=== PATIENT | male | born 1985 | race Caucasian/White ===

== ENCOUNTER 2018-04-11 01:16 | Emergency (ER) | payer OTHER ==
[2018-04-11] MEDS ORDERED: TERBUTALINE SULF 1 MG/1ML ONE (01:39)
--- NOTE | 2018-04-11 02:04 | EDPHYS ---
Physician Documentation [facility] Name: Guy Broderick Age: 32 yrs Sex: Male : 1985 Arrival Date: 04/11/2018 Time: 01:19 Bed 24 Private MD: Joel Villanueva ED Physician Ra Mosquera HPI: 04/11 01:51 This 32 yrs old Male presents to ER via Ambulatory with complaints of Penile jr8 Problem. 01:51 The patient presents with prolonged erection. Onset: The symptoms/episode jr8 began/occurred acutely, today. Modifying factors: The symptoms are alleviated by nothing, the symptoms are aggravated by nothing. Associated signs and symptoms: The patient has no apparent associated signs or symptoms. Severity of symptoms: At their worst the symptoms were mild, in the emergency department the symptoms are unchanged. The patient has not experienced similar symptoms in the past. The patient has not recently seen a physician. Patient had taken his prescribed Erectile dysfunction medication tonight. Has not been able to get rid of his prolonged erection. Has been approximately 4.5 hours now. Stated that it will somewhat decrease and then come back again . Historical: - Allergies: 01:36 No Known Allergies; - Home Meds: 01:36 None [Active]; - PMHx: 01:36 None; - PSHx: 01:36 None; - Immunization history:: Adult Immunizations unknown. - Social history:: Smoking status: Patient/guardian denies using tobacco. - Ebola Screening: : Patient negative for fever greater than or equal to 101.5 degrees Fahrenheit, and additional compatible Ebola Virus Disease symptoms Patient denies exposure to infectious person. ROS: 01:51 Eyes: Negative for injury, pain, redness, and discharge, ENT: Negative for injury, jr8 pain, and discharge, Neck: Negative for injury, pain, and swelling, Cardiovascular: Negative for chest pain, palpitations, and edema, Respiratory: Negative for shortness of breath, cough, wheezing, and pleuritic chest pain, Abdomen/GI: Negative for abdominal pain, nausea, vomiting, diarrhea, and constipation, Back: Negative for injury and pain, MS/Extremity: Negative for injury and deformity, Skin: Negative for injury, rash, and discoloration, Neuro: Negative for headache, weakness, numbness, tingling, and seizure. 01:51 : Positive for penile pain. Exam: 01:51 Cardiovascular: Regular rate and rhythm with a normal S1 and S2. No gallops, murmurs, jr8 or rubs. Normal PMI, no JVD. No pulse deficits. Respiratory: Lungs have equal breath sounds bilaterally, clear to auscultation and percussion. No rales, rhonchi or wheezes noted. No increased work of breathing, no retractions or nasal flaring. Abdomen/GI: Soft, non-tender, with normal bowel sounds. No distension or tympany. No guarding or rebound. No evidence of tenderness throughout. Back: No spinal tenderness. No costovertebral tenderness. Full range of motion. Skin: Warm, dry with normal turgor. Normal color with no rashes, no lesions, and no evidence of cellulitis. MS/ Extremity: Pulses equal, no cyanosis. Neurovascular intact. Full, normal range of motion. Neuro: Awake and alert, GCS 15, oriented to person, place, time, and situation. Cranial nerves II-XII grossly intact. Motor strength 5/5 in all extremities. Sensory grossly intact. Cerebellar exam normal. Normal gait. 01:51 : Male external genitalia: Circumcision noted. Erection present. No other anatomic abnormalities noted . Vital Signs: 01:37 BP 137 / 76; Pulse 91; Resp 18; Temp 98.2; Pulse Ox 98% on R/A; wh 02:09 BP 147 / 83; Pulse 97; wh MDM: 01:24 Patient medically screened. [facility] 02:01 Data reviewed: vital signs, nurses notes, and as a result, I will discharge patient. [facility] Data interpreted: Pulse oximetry: on room air is 98 %. Interpretation: normal. Counseling: I had a detailed discussion with the patient and/or guardian regarding: the historical points, exam findings, and any diagnostic results supporting the discharge/admit diagnosis, the need for outpatient follow up, a family practitioner, to return to the emergency department if symptoms worsen or persist or if there are any questions or concerns that arise at home. Response to treatment: the patient's symptoms have resolved after treatment, the patient's pain is gone, No penile erection . Administered Medications: :42 Drug: Terbutaline 0.5 mg Route: Sub-Q; Site: left upper arm; 02:02 Follow up: Response: No adverse reaction Disposition: 02:46 Co-signature as Attending Physician, Ra Moqsuera MD. pkl Disposition: 04/11/18 02:03 Discharged to Home. Impression: Priapism, drug-induced. - Condition is Stable. - Discharge Instructions: Priapism. - Medication Reconciliation Form, Thank You Letter, Antibiotic Education, Prescription Opioid Use form. - Follow up: Joel Villanueva DO; When: 1 - 2 days; Reason: Recheck today's complaints, Continuance of care, Re-evaluation by your physician. - Problem is new. - Symptoms are resolved. Signatures: Ra Mosquera MD MD pkl Hayder Butler PA PA jr8 Ambrocio Peters Corrections: (The following items were deleted from the chart) 02:11 02:03 04/11/2018 02:03 Discharged to Home. Impression: Priapism, drug-induced. Condition is Stable. Forms are Medication Reconciliation Form, Thank You Letter, Antibiotic Education, Prescription Opioid Use. Follow up: Joel Villanueva; When: 1 - 2 days; Reason: Recheck today's complaints, Continuance of care, Re-evaluation by your physician. Problem is new. Symptoms are resolved. jr8
--- NOTE | 2018-04-11 02:04 | ER ---
Nurse's Notes [facility] Name: Guy Broderick Age: 32 yrs Sex: Male : 1985 Arrival Date: 04/11/2018 Time: 01:19 Bed 24 Private MD: Joel Villanueva Diagnosis: Priapism, drug-induced Presentation: 04/11 01:30 Presenting complaint: Patient states: Pt states he took Trimex at around 20:30 and wh still has penile erection until now. Pt denies pain or any associated symptom. Transition of care: patient was not received from another setting of care. Onset of symptoms was April 10, 2018. Risk Assessment: Do you want to hurt yourself or someone else? Patient reports no desire to harm self or others. Initial Sepsis Screen: Does the patient meet any 2 criteria? No. Patient's initial sepsis screen is negative. Does the patient have a suspected source of infection? No. Patient's initial sepsis screen is negative. Care prior to arrival: None. 01:30 Method Of Arrival: Ambulatory 01:30 Acuity: DARWIN 5 Triage Assessment: 01:35 General: Appears in no apparent distress. Pain: Denies pain. Historical: - Allergies: 01:36 No Known Allergies; - Home Meds: 01:36 None [Active]; - PMHx: 01:36 None; - PSHx: 01:36 None; - Immunization history:: Adult Immunizations unknown. - Social history:: Smoking status: Patient/guardian denies using tobacco. - Ebola Screening: : Patient negative for fever greater than or equal to 101.5 degrees Fahrenheit, and additional compatible Ebola Virus Disease symptoms Patient denies exposure to infectious person. Screenin:35 Abuse screen: Denies threats or abuse. Denies injuries from another. Nutritional screening: No deficits noted. Tuberculosis screening: No symptoms or risk factors identified. Fall Risk None identified. Assessment: 01:44 General: Appears in no apparent distress. uncomfortable, Behavior is calm, cooperative, wh appropriate for age. Pain: Denies pain. Neuro: Level of Consciousness is awake, alert, obeys commands. Cardiovascular: Denies chest pain, Capillary refill < 3 seconds. Respiratory: Airway is patent Respiratory effort is even, unlabored, Respiratory pattern is regular, symmetrical. GI: Abdomen is flat, non-distended. : Reports prolonged erection after taking Trimex medication. EENT: No signs and/or symptoms were reported regarding the EENT system. Derm: Skin is intact, is healthy with good turgor, Skin is pink, warm \T\ dry. normal. Musculoskeletal: Range of motion: intact in all extremities. 02:09 Reassessment: Patient appears in no apparent distress at this time. Patient is alert, wh oriented x 3, equal unlabored respirations, skin warm/dry/pink. Pt states erection has gone down. Vital Signs: 01:37 BP 137 / 76; Pulse 91; Resp 18; Temp 98.2; Pulse Ox 98% on R/A; wh 02:09 BP 147 / 83; Pulse 97; wh ED Course: 01:19 Patient arrived in ED. es 01:20 Joel Villanueva DO is Private Physician. es 01:23 Ambrocio Peters is Primary Nurse. wh 01:24 [facility] jr8 01:24 Ra Mosquera MD is Attending Physician. jr8 01:35 Triage completed. wh 01:36 Arm band placed on. wh 01:37 Patient has correct armband on for positive identification. Bed in low position. Call light in reach. Side rails up X 1. Pulse ox on. NIBP on. 02:02 Joel Villanueva DO is Referral Physician. jr8 02:10 No provider procedures requiring assistance completed. Patient did not have IV access during this emergency room visit. Administered Medications: 01:42 Drug: Terbutaline 0.5 mg Route: Sub-Q; Site: left upper arm; 02:02 Follow up: Response: No adverse reaction Outcome: 02:03 Discharge ordered by . jr8 02:10 Discharged to home ambulatory. 02:10 Condition: improved 02:10 Discharge instructions given to patient, Instructed on discharge instructions, follow up and referral plans. POC Demonstrated understanding of instructions, follow-up care, POC 02:11 Patient left the ED. Signatures: Aury Parrish Josh, PA PA jr8 Ambrocio Peters
== END 2018-04-11 02:11 | disposition home or self-care (01) ==
LOC: ER 01:16
DX: N48.33 Priapism, drug-induced (principal)
CPT/HCPCS: 96372; 99283; J3105

== ENCOUNTER 2020-03-31 08:50 | Day surgery (SDC) | payer BC ==
[2020-03-31 09:28] LABS: Hematocrit 50.8 % (39.6-49.0)
[2020-03-31 09:29] LABS: Absolute Lymphocytes (CBC) 1.6 K/uL (0.7-4.9); Lymphocytes % 23.4 % (15.3-44.8)
[2020-03-31 12:22] VITALS: BMI 32.7
[2020-03-31 12:51] VITALS: BP 140/82; TEMP 98; O2SAT 99
== END 2020-03-31 10:45 | disposition home or self-care (01) ==
LOC: DS 08:50
PROVIDERS: ATTEND Internal Medicine Gastroenterology
DX: D75.1 Secondary polycythemia (principal)
CPT/HCPCS: 36415; 85025; 99195

== ENCOUNTER 2020-08-25 09:29 | Day surgery (SDC) | payer BC ==
[2020-08-25 09:47] LABS: Hematocrit 50.2 % (39.6-49.0)
[2020-08-25 09:58] VITALS: BP 140/84; TEMP 98; O2SAT 99; BMI 32.7
== END 2020-08-25 10:20 | disposition home or self-care (01) ==
LOC: DS 09:29
PROVIDERS: ATTEND Internal Medicine Gastroenterology
DX: D75.1 Secondary polycythemia (principal)
CPT/HCPCS: 36415; 85014; 85018; 99195

== ENCOUNTER 2020-10-23 08:14 | Day surgery (SDC) | payer BC ==
[2020-10-23 09:02] LABS: Absolute Lymphocytes (CBC) 1.6 K/uL (0.7-4.9); Basophils % 0.9 % (0-1.3); Hematocrit 49.7 % (39.6-49.0); Lymphocytes % 23.2 % (15.3-44.8); MPV 7.8 fL (7.6-11.3); RBC Red Blood Cell Count 5.58 M/uL (4.33-5.43)
[2020-10-23 09:04] VITALS: BMI 32.7
[2020-10-23 09:05] VITALS: BP 157/93; TEMP 98.4; O2SAT 98
== END 2020-10-23 09:27 | disposition home health service (06) ==
LOC: DS 08:14
PROVIDERS: ATTEND Internal Medicine Gastroenterology
DX: D75.1 Secondary polycythemia (principal)
CPT/HCPCS: 36415; 85025; 99195

== ENCOUNTER 2021-01-30 07:17 | Day surgery (SDC) | payer BC ==
[2021-01-30 08:50] VITALS: BP 117/51; TEMP 98.4; O2SAT 99; BMI 32.7
== END 2021-01-30 08:41 | disposition home or self-care (01) ==
LOC: DS 07:17
PROVIDERS: ATTEND Internal Medicine Gastroenterology
DX: D75.1 Secondary polycythemia (principal)
CPT/HCPCS: 99195

== ENCOUNTER 2022-06-19 03:46 | Emergency (ER) | payer BC ==
[2022-06-19] MEDS ORDERED: TERBUTALINE SULF 1 MG/1ML ONE (04:06)
[2022-06-19] MEDS ORDERED: Phenylephrine HCl 10 MG/ML 1 ML VIAL ONE (04:41)
[2022-06-19] MEDS ORDERED: LIDOCAINE 1% MPF 5 ML VIAL ONE (04:46)
--- NOTE | 2022-06-19 05:52 | EDPHYS ---
Physician Documentation [facility] Name: Guy Broderick Age: 37 yrs Sex: Male : 1985 Arrival Date: 06/19/2022 Time: 03:49 Bed 3 Private MD: ED Physician Benson Kitchen HPI: 06/19 04:18 This 37 yrs old Male presents to ER via Ambulatory with complaints of Prolonged rt erection. 04:18 The patient presents with priapism. Onset: The symptoms/episode began/occurred 5 rt hour(s) ago. Modifying factors: The symptoms are alleviated by nothing, the symptoms are aggravated by nothing. Associated signs and symptoms: The patient has no apparent associated signs or symptoms. Severity of symptoms: At their worst the symptoms were mild. Presents to the ED with priapism after using an intracavernosal erectile dysfunction injection. He started develop pain. This is happened to him previously about 5 years ago, received terbutaline with significant symptomatic improvement. The patient denies other acute complaints at this time or other aggravating alleviating factors. Symptoms are mild in severity, pain is aching nature, nonradiating.. Historical: - Allergies: 03:56 No Known Allergies; vc1 - Home Meds: 03:56 None [Active]; vc1 - PMHx: 03:56 None; vc1 - PSHx: 03:56 None; vc1 - Immunization history:: Adult Immunizations Client reports receiving the Roge \T\ Roge single-dose vaccine. - Social history:: Smoking status: Patient denies any tobacco usage or history of. - Family history:: not pertinent. ROS: 04:18 Constitutional: Negative for fever, chills, and weight loss, Eyes: Negative for injury, rt pain, redness, and discharge, Cardiovascular: Negative for chest pain, palpitations, and edema, Respiratory: Negative for shortness of breath, cough, wheezing, and pleuritic chest pain, Abdomen/GI: Negative for abdominal pain, nausea, vomiting, diarrhea, and constipation, MS/Extremity: Negative for injury and deformity, Skin: Negative for injury, rash, and discoloration, Neuro: Negative for headache, weakness, numbness, tingling, and seizure, Psych: Negative for depression, anxiety, suicide ideation, homicidal ideation, and hallucinations. 04:18 : Positive for penile pain, priapism. Exam: 04:18 Constitutional: This is a well developed, well nourished patient who is awake, alert, rt and in no acute distress. Head/Face: Normocephalic, atraumatic. Neck: Trachea midline, no thyromegaly or masses palpated, and no cervical lymphadenopathy. Supple, full range of motion without nuchal rigidity, or vertebral point tenderness. No Meningismus. Chest/axilla: Normal chest wall appearance and motion. Nontender with no deformity. No lesions are appreciated. Cardiovascular: Regular rate and rhythm with a normal S1 and S2. No gallops, murmurs, or rubs. Normal PMI, no JVD. No pulse deficits. Respiratory: Lungs have equal breath sounds bilaterally, clear to auscultation and percussion. No rales, rhonchi or wheezes noted. No increased work of breathing, no retractions or nasal flaring. Abdomen/GI: Soft, non-tender, with normal bowel sounds. No distension or tympany. No guarding or rebound. No evidence of tenderness throughout. Skin: Warm, dry with normal turgor. Normal color with no rashes, no lesions, and no evidence of cellulitis. MS/ Extremity: Pulses equal, no cyanosis. Neurovascular intact. Full, normal range of motion. Neuro: Awake and alert, GCS 15, oriented to person, place, time, and situation. Cranial nerves II-XII grossly intact. Motor strength 5/5 in all extremities. Sensory grossly intact. Cerebellar exam normal. Normal gait. Psych: Awake, alert, with orientation to person, place and time. Behavior, mood, and affect are within normal limits. 04:18 : Erect penis, testicles within normal limits. Vital Signs: 03:54 BP 154 / 91; Pulse 96; Resp 18; Temp 98; Pulse Ox 100% ; Weight 111.13 kg; Height 6 ft. vc1 1 in. (185.42 cm); Pain 8/10; 05:00 BP 155 / 73; Pulse 106; Resp 19 S; Pulse Ox 98% on R/A; as6 03:54 Body Mass Index 32.32 (111.13 kg, 185.42 cm) vc1 Procedures: 06:09 Performed priapism aspiration and injection. Sterile technique was used. chlorhexidine rt was used to cleanse the skin 60 cc of dark blood was aspirated, 500 mcg of phenylephrine was injected with detumescence.. MDM: 03:57 Patient medically screened. rt 06:09 Differential diagnosis: drug Induced priapism priapism. Data reviewed: vital signs, rt nurses notes. Response to treatment: the patient's symptoms have resolved after treatment. ED course: patient to follow-up with his urologist, will return if his symptoms worsen or for new concerning symptoms.. Administered Medications: 04:16 Drug: Terbutaline 0.5 mg Route: Sub-Q; Site: right upper arm; as6 05:59 Follow up: Response: No adverse reaction as6 Disposition Summary: 06/19/22 05:51 Discharge Ordered Location: Home rt Problem: new rt Symptoms: are resolved rt Condition: Stable rt Diagnosis - Priapism rt Followup: rt - With: Private Physician - When: 2 - 3 days - Reason: Discharge Instructions: - Discharge Summary Sheet rt - Priapism rt Forms: - Medication Reconciliation Form rt - Thank You Letter rt - Antibiotic Education rt - Prescription Opioid Use rt Signatures: Rodriguez Odonnell RN RN as6 Ethel Abraham RN RN vc1 Benson Kitchen MD MD rt
--- NOTE | 2022-06-19 05:52 | ER ---
Nurse's Notes [facility] Name: Guy Broderick Age: 37 yrs Sex: Male : 1985 Arrival Date: 06/19/2022 Time: 03:49 Bed 3 Private MD: Diagnosis: Priapism Presentation: 06/19 03:54 Chief complaint: Patient states: "I have an erection that won't go down". Coronavirus vc1 screen: Vaccine status: Patient reports receiving the 1st dose of the Covid vaccine. At this time, the client does not indicate any symptoms associated with coronavirus-19. Ebola Screen: No symptoms or risks identified at this time. Initial Sepsis Screen: Does the patient meet any 2 criteria? No. Patient's initial sepsis screen is negative. Does the patient have a suspected source of infection? No. Patient's initial sepsis screen is negative. Risk Assessment: Do you want to hurt yourself or someone else? Patient reports no desire to harm self or others. Note injected trimix. Note erection for 5 hours. Onset of symptoms. 03:54 Method Of Arrival: Ambulatory vc1 03:54 Acuity: DARWIN 4 vc1 Triage Assessment: 03:59 General: Appears in no apparent distress. uncomfortable, Behavior is calm, cooperative, vc1 appropriate for age. Pain: Complains of pain in penis. EENT: No deficits noted. No signs and/or symptoms were reported regarding the EENT system. Neuro: No deficits noted. Cardiovascular: No deficits noted. Respiratory: Airway is patent Respiratory effort is even, unlabored, Respiratory pattern is regular, symmetrical. GI: No deficits noted. : Reports erection for 5 hours. Derm: No deficits noted. No signs and/or symptoms reported regarding the dermatologic system. Musculoskeletal: No deficits noted. No signs and/or symptoms reported regarding the musculoskeletal system. Historical: - Allergies: 03:56 No Known Allergies; vc1 - Home Meds: 03:56 None [Active]; vc1 - PMHx: 03:56 None; vc1 - PSHx: 03:56 None; vc1 - Immunization history:: Adult Immunizations Client reports receiving the Roge \\T\\ Roge single-dose vaccine. - Social history:: Smoking status: Patient denies any tobacco usage or history of. - Family history:: not pertinent. Screenin:00 Abuse screen: Denies threats or abuse. Nutritional screening: No deficits noted. vc1 Tuberculosis screening: No symptoms or risk factors identified. 05:57 [facility] ED Fall Risk Assessment (Adult) Score/Fall Risk Level 0 - 2 = Low Risk. as6 Assessment: 04:00 General: Appears uncomfortable, Behavior is cooperative, restless. Pain: Complains of as6 pain in head of penis and shaft of penis. Neuro: Level of Consciousness is awake, alert, obeys commands, Oriented to person, place, time, situation. Cardiovascular: Capillary refill < 3 seconds Patient's skin is warm and dry. Respiratory: Respiratory effort is even, unlabored, Respiratory pattern is regular, symmetrical. : erect penis. 05:58 Reassessment: Patient states feeling better. Patient states symptoms have improved. as6 Vital Signs: 03:54 BP 154 / 91; Pulse 96; Resp 18; Temp 98; Pulse Ox 100% ; Weight 111.13 kg; Height 6 ft. vc1 1 in. (185.42 cm); Pain 8/10; 05:00 BP 155 / 73; Pulse 106; Resp 19 S; Pulse Ox 98% on R/A; as6 03:54 Body Mass Index 32.32 (111.13 kg, 185.42 cm) vc1 ED Course: 03:49 Patient arrived in ED. jj6 03:54 Rodriguez Odonnell, RN is Primary Nurse. as6 03:56 Triage completed. vc1 03:56 Benson Kitchen MD is Attending Physician. rt 03:56 Arm band placed on right wrist. vc1 05:55 drainage of penis. Patient did not have IV access during this emergency room visit. as6 05:57 Placed in gown. Bed in low position. Call light in reach. Side rails up X 1. as6 Administered Medications: 04:16 Drug: Terbutaline 0.5 mg Route: Sub-Q; Site: right upper arm; as6 05:59 Follow up: Response: No adverse reaction as6 Medication: 04:00 VIS not applicable for this client. vc1 Outcome: 05:51 Discharge ordered by . rt 05:57 Discharged to home ambulatory. as6 05:57 Condition: stable 05:57 Discharge instructions given to patient, Instructed on discharge instructions, follow up and referral plans. Demonstrated understanding of instructions, follow-up care. 05:59 Patient left the ED. as6 Signatures: Lexis Green jj6 Rodriguez Odonnell RN RN as6 Ethel Abraham RN RN vc1 Benson Kitchen MD MD rt
[2022-06-19 06:04] VITALS: TEMP 98
[2022-06-19 06:05] VITALS: BP 155/73; O2SAT 98
== END 2022-06-19 05:59 | disposition home or self-care (01) ==
LOC: ER 03:46
DX: N48.30 Priapism, unspecified (principal)
CPT/HCPCS: 96372; 99283; J3105; J2001; J2370

== ENCOUNTER 2024-03-13 03:57 | Emergency (ER) | payer BC ==
[2024-03-13] MEDS ORDERED: NA CHLORIDE 0.9% 2,000 ML ONE (04:33)
[2024-03-13 04:58] LABS: Absolute Basophils 0.1 K/uL (0-0.5); Absolute Lymphocytes (CBC) 1.3 K/uL (0.7-4.9); Absolute Monocytes 1.1 K/uL (0.1-1.3); Absolute Neutrophil 15.7 K/uL (1.8-8.0); Basophils % 0.4 % (0-1.3); D-Dimer 0.279 FEUug/mL (0-0.500); Hematocrit 46.1 % (39.6-49.0); Hemoglobin 15.7 g/dL (13.6-17.9); MCH 29.3 pg (27.0-35.0); MCHC 34.1 g/dL (32.0-36.0); MCV 85.9 fL (80-100); Monocytes % 5.9 % (3.3-12.3); Neutrophils % 86.7 % (41.7-73.7); Nucleated Red Blood Cells % 0.1 % (0-0); PT Prothrombin Time 11.4 SECONDS (9.4-12.5); Platelets 259 thou/uL (152-406); Protime INR 1.02; RBC Red Blood Cell Count 5.37 M/uL (4.33-5.43)
[2024-03-13 05:10] LABS: ALT/SGPT 57 U/L (16-61); Albumin 3.6 g/dL (3.4-5.0); Albumin/Globulin Ratio 1.1 (1.1-1.8); Alkaline Phosphatase 69 U/L (45-117); Anion Gap 9.7 mEq/L (5.0-15.0); BUN Blood Urea Nitrogen 22 mg/dL (7-18); Bicarbonate 23 mEq/L (21-32); Bilirubin Total 0.4 mg/dL (0.2-1.0); C-Reactive Protein 3.29 mg/L (<3.00); Creatine Phosphokinase 558 U/L (39-308); Globulin 3.2 g/dL (2.3-3.5); Glomerular Filtration Rate 55 ml/min (=/>90); Glucose Level 210 mg/dL (74-106); NT PRO-BNP 28 pg/mL (<125); Protein, Total 6.8 g/dL (6.4-8.2); Sodium Level 136 mEq/L (136-145); Troponin High Sensitivity 5.9 pg/mL (<58.9)
[2024-03-13 05:18] LABS: AST/SGOT 32 U/L (15-37); Bilirubin Direct < 0.2 mg/dL (0-0.2); Bilirubin Indirect, Calculated 0.2 mg/dL (0.2-0.8); Magnesium 1.9 mg/dL (1.6-2.4); Potassium 3.7 mEq/L (3.5-5.1)
[2024-03-13] MEDS ORDERED: CEFEPIME 2 GM VIAL ONE (06:05)
[2024-03-13] MEDS ORDERED: NA CHLORIDE 0.9% 100 ML ONE (06:05)
[2024-03-13] MEDS ORDERED: VANCOMYCIN 1 GM/VIAL ONE (06:28)
[2024-03-13] MEDS ORDERED: NA CHLORIDE 0.9% 500 ML ONE (06:28)
[2024-03-13 06:34] LABS: Blood Morphology Comment NOT SEEN (NOT SEEN); Platelet Estimate ADEQ; White Blood Cell Scan OK (OK)
--- NOTE | 2024-03-13 06:37 | RAD REPORT ---
EXAMINATION: CTA CHEST PE CLINICAL INDICATION: Male, 38 years old. CHEST PAIN TECHNIQUE: This examination was performed according to an angiographic protocol with 3D post-processi ng. This involves 3D reconstructions, MIPs, volume rendered images and/or shaded surface rendering. One or more of the following dose reduction techniques were used: Automated exposure control, adjustm ent of the mA and/or kV according to patient size, and/or iterative reconstruction. Unless otherwise specified, incidental findings do not require dedicated imaging follow-up. [id number]. COMPARISON: No prior exam. FINDINGS: LOWER NECK: Visualized thyroid gland and soft tissues are normal. LUNGS AND AIRWAYS: Mild left lower lobe consolidation with volume loss. Dependent atelectasis at the right lung base. PLEURA: No pleural effusion. No pneumothorax. Hemidiaphragms are normally positioned. MEDIASTINUM AND LYMPH NODES: No mediastinal mass or fluid collection. Normal size mediastinal, hilar, and axillary lymph nodes. THORACIC AORTA: Normal caliber and configuration. PULMONARY ARTERIES: Suboptimal evaluation of the subsegmental pulmonary arteries. HEART: Normal heart size. No pericardial effusion. No coronary calcifications. OSSEOUS STRUCTURES AND CHEST WALL: Intact. UPPER ABDOMEN: No significant abnormalities. IMPRESSION: No clinically significant pulmonary embolus identified. Consolidation with volume loss at the left lo wer lobe like a combination of atelectasis and possibly either pneumonitis/pneumonia.
--- NOTE | 2024-03-13 06:54 | ER ---
Nurse's Notes [facility] Name: Guy Broderick Age: 38 yrs Sex: Male : 1985 Arrival Date: 03/13/2024 Time: 03:57 Bed 18 Private MD: Diagnosis: Community-acquired pneumonia Presentation: 03/13 04:15 Chief complaint: Patient states: Pt states he had Biceps sx the day prior and since d/c dd2 from hospital has been having sob. Coronavirus screen: At this time, the client does not indicate any symptoms associated with coronavirus-19. Ebola Screen: No symptoms or risks identified at this time. Initial Sepsis Screen: Does the patient meet any 2 criteria? No. Patient's initial sepsis screen is negative. Does the patient have a suspected source of infection? No. Patient's initial sepsis screen is negative. Risk Assessment: Do you want to hurt yourself or someone else? Patient reports no desire to harm self or others. Onset of symptoms was March 12, 2024. 04:15 Method Of Arrival: Ambulatory dd2 04:15 Acuity: DARWIN 3 dd2 Triage Assessment: 04:19 General: Appears in no apparent distress. well groomed, Behavior is calm, cooperative, dd2 appropriate for age. Pain: Denies pain. EENT: No deficits noted. No signs and/or symptoms were reported regarding the EENT system. Neuro: Level of Consciousness is awake, alert, obeys commands, Oriented to person, place, time, situation, Appropriate for age Moves all extremities. Speech is normal. Cardiovascular: Patient's skin is warm and dry. Rhythm is sinus tachycardia. Respiratory: Reports shortness of breath at rest on exertion Airway is patent Respiratory effort is labored, Respiratory pattern is regular, symmetrical, Breath sounds are clear bilaterally. Onset: The symptoms/episode began/occurred yesterday. Respiratory: the patient has moderate shortness of breath. GI: No deficits noted. No signs and/or symptoms were reported involving the gastrointestinal system. : No deficits noted. No signs and/or symptoms were reported regarding the genitourinary system. Derm: No deficits noted. No signs and/or symptoms reported regarding the dermatologic system. Musculoskeletal: No signs and/or symptoms reported regarding the musculoskeletal system. Historical: - Allergies: 04:19 No Known Allergies; dd2 - PMHx: 04:19 Hypertensive disorder; ADHD; dd2 - PSHx: 04:19 BICEP REPAIR; dd2 - Immunization history:: Adult Immunizations up to date. - Infectious Disease History:: Denies. - Social history:: Smoking status: Reported history of juuling and/or vaping. - Family history:: not pertinent. Screenin:26 [facility] ED Fall Risk Assessment (Adult) History of falling in the last 3 months, dd2 including since admission No falls in past 3 months (0 pts) Confusion or Disorientation No (0 pts) Intoxicated or Sedated No (0 pts) Impaired Gait No (0 pts) Mobility Assist Device Used No (0 pt) Altered Elimination No (0 pt) Score/Fall Risk Level 0 - 2 = Low Risk Oriented to surroundings, Maintained a safe environment, Hourly rounding (assess needs \T\ fall precautionary measures) done. Abuse screen: Denies threats or abuse. Nutritional screening: No deficits noted. Tuberculosis screening: No symptoms or risk factors identified. Assessment: 04:26 Reassessment: SEE TRIAGE NOTE FOR FULL ASSESSMENT. dd2 07:30 Reassessment: Patient appears in no apparent distress at this time. Patient and/or db family updated on plan of care and expected duration. Pain level reassessed. Patient is alert, oriented x 3, equal unlabored respirations, skin warm/dry/pink. PATIENT INSTRUCTED IN INCENTIVE SPIROMETRY. 07:45 General: Appears in no apparent distress. comfortable, Behavior is calm, cooperative. db Neuro: Level of Consciousness is awake, alert, obeys commands, Oriented to person, place, time, situation. Cardiovascular: No deficits noted. Denies chest pain. Respiratory: Airway is patent Respiratory effort is even, unlabored, Respiratory pattern is regular, symmetrical. 08:06 Reassessment: Patient appears in no apparent distress at this time. Patient and/or db family updated on plan of care and expected duration. Pain level reassessed. Patient is alert, oriented x 3, equal unlabored respirations, skin warm/dry/pink. PATIENT AMBULATORY TO RESTROOM. 08:30 Reassessment: Patient appears in no apparent distress at this time. Patient and/or db family updated on plan of care and expected duration. Pain level reassessed. Patient is alert, oriented x 3, equal unlabored respirations, skin warm/dry/pink. Vital Signs: 04:15 BP 135 / 97; Pulse 105; Resp 18; Temp 98.3; Pulse Ox 94% ; Weight 114.31 kg; dd2 04:19 BP 126 / 73; Pulse 100; Resp 18; Pulse Ox 93% ; dd2 05:15 BP 143 / 84; Pulse 93; Resp 17; Pulse Ox 94% on 2 lpm NC; dd2 05:15 BP 124 / 74; Pulse 92; Resp 17; Pulse Ox 89% on R/A; dd2 07:49 BP 109 / 72; Pulse 82; Resp 18; Pulse Ox 100% on R/A; db 08:30 BP 146 / 90; Pulse 89; Resp 18; Temp 98.3; Pulse Ox 99% ; db Vitals: 04:26 Cardiac Rhythm Assessment Sinus tach. dd2 [place] Coma Score: 04:26 Eye Response: spontaneous(4). Motor Response: obeys commands(6). Verbal Response: dd2 oriented(5). Total: 15. 05:21 Eye Response: spontaneous(4). Motor Response: obeys commands(6). Verbal Response: sp4 oriented(5). Total: 15. ED Course: 03:59 Patient arrived in ED. [id number] 04:06 RADHA SAM, RN is Primary Nurse. dd2 04:09 Evan Mccauley MD is Attending Physician. sp4 04:19 Triage completed. dd2 04:19 Arm band placed on right wrist. Patient placed in an exam room, on a stretcher, on dd2 monitor car operator, on pulse oximetry. EKG completed in triage. Results shown to MD. 04:26 Patient has correct armband on for positive identification. Bed in low position. Call dd2 light in reach. Side rails up X 1. Provided Education on: CALL LIGHT, LABS/RADIOLOGY AND RESULT TIMES. Client placed on continuous cardiac and pulse oximetry monitoring. NIBP monitoring applied. engine monitor on. Door closed. Noise minimized. Warm blanket given. Verbal reassurance given. 04:26 No provider procedures requiring assistance completed. EKG done, by ED staff, reviewed dd2 by Evan Mccauley MD. 04:26 Inserted saline lock: 20 gauge in right forearm, using aseptic technique. dd2 04:26 Initial lab(s) drawn, by ED staff, sent to lab. dd2 05:49 CT Chest For PE Angio In Process Unspecified. EDMS 07:41 Primary Nurse role handed off by RADHA SAM, FRANCES eb 08:06 Ellen Castillo, RN is Primary Nurse. db 08:55 IV discontinued, intact, bleeding controlled, No redness/swelling at site. db Administered Medications: 04:42 Drug: NS 0.9% IV 1000 ml IV at 1 bolus Per protocol; 1000 mL bolus Route: IV; Rate: 1 dd2 bolus; Site: right antecubital; 04:57 Follow up: Response: No adverse reaction dd2 05:42 Follow up: Response: No adverse reaction; IV Status: Completed infusion; IV Intake: dd2 1000ml 04:42 Drug: NS 0.9% IV 1000 ml IV at 125 ml/hr continuous Route: IV; Rate: 125 ml/hr; Site: dd2 right antecubital; 04:57 Follow up: Response: No adverse reaction dd2 08:55 Follow up: IV Status: Completed infusion db 05:37 Not Given (Physician Discretion): cefepime1 grams IVPB at 200 ml/hr once over 30 mins; sp4 (mix in NS 100 mL) 06:12 Drug: Cefepime IVPB 2 grams IVPB at 200 ml/hr once over 30 mins; (mix in NS 100 mL) dd2 Route: IVPB; Rate: 200 ml/hr; Infused Over: 30 mins; Site: right antecubital; 06:27 Follow up: Response: No adverse reaction dd2 06:42 Follow up: Response: No adverse reaction; IV Status: Completed infusion; IV Intake: dd2 110ml 06:41 Drug: vancoMYCIN IVPB 2 grams IVPB at calculated rate once Route: IVPB; Rate: dd2 calculated rate; Site: right antecubital; 08:55 Follow up: Response: No adverse reaction; IV Status: Completed infusion; IV Intake: db 500ml Medication: 04:26 VIS not applicable for this client. dd2 Intake: 05:42 IV: 1000ml; Total: 1000ml. dd2 06:42 IV: 110ml; Total: 1110ml. dd2 08:55 IV: 500ml; Total: 1610ml. db Outcome: 06:54 Discharge ordered by . sp4 08:51 Discharge ordered by . rt 08:55 Discharged to home ambulatory, with family, db 08:55 Condition: stable 08:55 Discharge instructions given to patient, family, Instructed on discharge instructions, follow up and referral plans. Prescriptions given X 1, 08:57 Patient left the ED. db Signatures: Dispatcher [employer] EDMS Alian Rosas Jennifer [id number] Ellen Castillo RN RN db Benson Kitchen MD MD rt Evan Mccauley MD MD sp4 RADHA SAM RN RN dd2 Corrections: (The following items were deleted from the chart) 07:46 07:30 Reassessment: PATIENT INSTRUCTED IN INCENTIVE SPIROMETRY. db db
--- NOTE | 2024-03-13 06:54 | EDPHYS ---
Physician Documentation [facility] Name: Guy Broderick Age: 38 yrs Sex: Male : 1985 Arrival Date: 03/13/2024 Time: 03:57 Bed 18 Private MD: ED Physician Evan Mccauley HPI: 03/13 04:09 This 38 yrs old Male presents to ER via Unassigned with complaints of sp4 Shortness Of Breath, Post Surgical Pain. 05:21 Patient is 2-day postoperative after distal bicep tendon repair at [address], by Dr. Ayou[facility]. Patient is morning developed acute dyspnea and chest heaviness associated with rapid heart rate. Patient states he takes testosterone replacement therapy injectable twice weekly also p.o. nebivolol, Adderall 40 mg every morning, and anastrozole as well . Historical: - Allergies: 04:19 No Known Allergies; dd2 - PMHx: 04:19 Hypertensive disorder; ADHD; dd2 - PSHx: 04:19 BICEP REPAIR; dd2 - Immunization history:: Adult Immunizations up to date. - Infectious Disease History:: Denies. - Social history:: Smoking status: Reported history of juuling and/or vaping. - Family history:: not pertinent. ROS: 05:21 Constitutional: Negative for fever, chills, and weight loss, Positive for dyspnea and sp4 shortness of breath 05:21 All other systems are negative, Exam: 05:21 Constitutional: This is a well developed, well nourished patient who is awake, alert, sp4 and in no acute distress. Head/Face: Normocephalic, atraumatic. Eyes: Pupils equal round and reactive to light, extra-ocular motions intact. Lids and lashes normal. Conjunctiva and sclera are not injected. Cornea within normal limits. Periorbital areas with no swelling, redness, or edema. ENT: Nares patent. No nasal discharge, no septal abnormalities noted. Tympanic membranes are normal and external auditory canals are clear. Oropharynx with no redness, swelling, or masses, exudates, or evidence of obstruction, uvula midline. Mucous membranes moist. Neck: Trachea midline, no thyromegaly or masses palpated, and no cervical lymphadenopathy. Supple, full range of motion without nuchal rigidity, or vertebral point tenderness. Chest/axilla: Normal chest wall appearance and motion. Nontender with no deformity. No lesions are appreciated. Cardiovascular: Regular rate and rhythm with a normal S1 and S2. No gallops, murmurs, or rubs. Normal PMI, no JVD. No pulse deficits. Respiratory: Lungs have equal breath sounds bilaterally, clear to auscultation and percussion. No rales, rhonchi or wheezes noted. No increased work of breathing, no retractions or nasal flaring. Abdomen/GI: Soft, with normal bowel sounds. No distension or tympany. No guarding or rebound. No evidence of tenderness throughout. Back: No spinal tenderness. No costovertebral tenderness. Skin: Warm, dry with normal turgor. Normal color with no rashes, no lesions, and no evidence of cellulitis. MS/ Extremity: Pulses equal, no cyanosis. Neurovascular intact. Full, normal range of motion. Neuro: Awake and alert, GCS 15, oriented to person, place, time, and situation. Cranial nerves II-XII grossly intact. Motor strength 5/5 in all extremities. Sensory grossly intact. Psych: Awake, alert, with orientation to person, place and time. Behavior, mood, and affect are within normal limits 05:21 ECG was reviewed by the Attending Physician. EKG at 0 314 sinus tachycardia rate 104. Vital Signs: 04:15 BP 135 / 97; Pulse 105; Resp 18; Temp 98.3; Pulse Ox 94% ; Weight 114.31 kg; dd2 04:19 BP 126 / 73; Pulse 100; Resp 18; Pulse Ox 93% ; dd2 05:15 BP 143 / 84; Pulse 93; Resp 17; Pulse Ox 94% on 2 lpm NC; dd2 05:15 BP 124 / 74; Pulse 92; Resp 17; Pulse Ox 89% on R/A; dd2 07:49 BP 109 / 72; Pulse 82; Resp 18; Pulse Ox 100% on R/A; db 08:30 BP 146 / 90; Pulse 89; Resp 18; Temp 98.3; Pulse Ox 99% ; db [place] Coma Score: 04:26 Eye Response: spontaneous(4). Motor Response: obeys commands(6). Verbal Response: dd2 oriented(5). Total: 15. 05:21 Eye Response: spontaneous(4). Motor Response: obeys commands(6). Verbal Response: sp4 oriented(5). Total: 15. MDM: 04:19 Patient medically screened. sp4 06:13 Differential diagnosis: Anxiety Reaction asthma, Bronchitis CHF exacerbation, sp4 pneumonia, Pneumothorax Psychogenic pulmonary edema, Pulmonary Embolism. Data reviewed: vital signs, nurses notes, old medical records, lab test result(s), EKG, radiologic studies, CT scan. 03/13 04:18 Order name: Basic Metabolic Panel; Complete Time: 05:26 sp4 03/13 04:18 Order name: CBC with Diff; Complete Time: 06:46 sp4 03/13 04:18 Order name: D-Dimer; Complete Time: 05: sp4 03/13 04:18 Order name: LFT's; Complete Time: 05: sp4 03/13 04:18 Order name: Magnesium; Complete Time: 05:26 sp4 03/13 04:18 Order name: NT PRO-BNP; Complete Time: 05:26 sp4 03/13 04:18 Order name: PT-INR; Complete Time: 05:26 sp4 03/13 04:18 Order name: Troponin HS; Complete Time: 05:26 sp4 03/13 04:18 Order name: CK; Complete Time: 05:26 sp4 03/13 04:18 Order name: CRP; Complete Time: 05:26 sp4 03/13 05:36 Order name: Blood Culture Adult (2) 4 03/13 06:34 Order name: CBC Smear Scan; Complete Time: 06:46 EDMS 03/13 04:18 Order name: CT Chest For PE Angio; Complete Time: 06:46 sp4 03/13 04:18 Order name: Cardiac monitoring; Complete Time: 04:30 sp4 03/13 04:18 Order name: EKG - Nurse/Tech; Complete Time: 04:30 sp4 03/13 04:18 Order name: IV Saline Lock; Complete Time: 04:30 sp4 03/13 04:18 Order name: Labs collected and sent; Complete Time: 04:30 sp4 03/13 04:18 Order name: O2 Per Protocol; Complete Time: 04:30 sp4 03/13 04:18 Order name: O2 Sat Monitoring; Complete Time: 04:30 sp4 03/13 06:52 Order name: Misc. Order: Provide Spirometer; Complete Time: 07:33 sp4 EC:13 Rate is 104 beats/min. Rhythm is regular, Sinus tachycardia. QRS [place] is Normal. MS sp4 interval is normal. QRS interval is normal. QT interval is normal. No Q waves. T waves are Normal. No ST changes noted. Clinical impression: No evidence of ischemia. Interpreted by me. Reviewed by me. Administered Medications: 04:42 Drug: NS 0.9% IV 1000 ml IV at 1 bolus Per protocol; 1000 mL bolus Route: IV; Rate: 1 dd2 bolus; Site: right antecubital; 04:57 Follow up: Response: No adverse reaction dd2 05:42 Follow up: Response: No adverse reaction; IV Status: Completed infusion; IV Intake: dd2 1000ml 04:42 Drug: NS 0.9% IV 1000 ml IV at 125 ml/hr continuous Route: IV; Rate: 125 ml/hr; Site: dd2 right antecubital; 04:57 Follow up: Response: No adverse reaction dd2 08:55 Follow up: IV Status: Completed infusion db 05:37 Not Given (Physician Discretion): cefepime1 grams IVPB at 200 ml/hr once over 30 mins; sp4 (mix in NS 100 mL) 06:12 Drug: Cefepime IVPB 2 grams IVPB at 200 ml/hr once over 30 mins; (mix in NS 100 mL) dd2 Route: IVPB; Rate: 200 ml/hr; Infused Over: 30 mins; Site: right antecubital; 06:27 Follow up: Response: No adverse reaction dd2 06:42 Follow up: Response: No adverse reaction; IV Status: Completed infusion; IV Intake: dd2 110ml 06:41 Drug: vancoMYCIN IVPB 2 grams IVPB at calculated rate once Route: IVPB; Rate: dd2 calculated rate; Site: right antecubital; 08:55 Follow up: Response: No adverse reaction; IV Status: Completed infusion; IV Intake: db 500ml Disposition Summary: 03/13/24 08:51 Discharge Ordered Problem: new(03/13/24 08:51) rt Symptoms: have improved(03/13/24 08:51) rt Condition: Stable(03/13/24 08:51) rt Diagnosis - Community-acquired pneumonia rt Followup: rt - With: Private Physician - When: 2 - 3 days - Reason: Forms: - Medication Reconciliation Form rt - Antibiotic Education rt - Prescription Opioid Use rt - Patient Portal Instructions rt - Leadership Thank You Letter rt Signatures: Dispatcher [employer] EDBenson Gamino MD MD rt Evan Mccauley MD MD sp4 RADHA SAM RN RN dd2 Ellen Castillo RN db Corrections: (The following items were deleted from the chart) 04:18 04:18 BASIC METABOLIC PANEL+C.LAB.BRZ ordered. EDMS EDMS 04:18 04:18 CBC+H.LAB.BRZ ordered. EDMS EDMS 04:18 04:18 D-DIMER+COAG.LAB.BRZ ordered. EDMS EDMS 04:18 04:18 HEPATIC FUNCTION+C.LAB.BRZ ordered. EDMS EDMS 04:18 04:18 MAGNESIUM+C.LAB.BRZ ordered. EDMS EDMS 04:18 04:18 PROBNP+C.LAB.BRZ ordered. EDMS EDMS 04:18 04:18 PROTIME (+INR)+COAG.LAB.BRZ ordered. EDMS EDMS 04:18 04:18 Troponin High Sensitivity+C.LAB.BRZ ordered. EDMS EDMS 06:36 05:03 Manual Differential ordered. EDMS EDMS 07:01 06:54 Home sp4 sp4 07:01 06:54 new sp4 sp4 07:01 06:54 have improved sp4 sp4 07:01 06:54 Stable sp4 sp4 07:01 06:54 Lobar pneumonia, unspecified organism sp4 sp4 07:01 06:54 Acute left lower lung pneumonia sp4 sp4
[2024-03-13 09:12] VITALS: TEMP 98.3
[2024-03-13 09:20] VITALS: BP 146/90; O2SAT 99
--- NOTE | 2024-03-15 11:58 | EKG ---
Test Date: 2024-03-13 Test Time: 04:13:57 Vibrator Equipment Tester: TIMA MEASUREMENT RESULTS: Intervals: Rate: 104 ME: 178 QRSD: 92 QT: 328 QTc: 431 [place]: P: 64 ME: 178 QRS: 49 T: 17 INTERPRETIVE STATEMENTS: Sinus tachycardia Otherwise normal ECG No previous ECG available for comparison Electronically Signed On 03-15-24 11:53:37 CDT by Max Gamboa
== END 2024-03-13 08:57 | disposition home or self-care (01) ==
LOC: ER 03:57
DX: J18.9 Pneumonia, unspecified organism (principal); Z98.890 Other specified postprocedural states; I10 Essential (primary) hypertension
CPT/HCPCS: 96365; 96361; 93005; 87040 ×2; 85025; 80048; 36415; 83735; 82550; 85610; 85379; 80076; 84484; 83880; 86140; 71275; 99285; 96366; Q9967; J0692; J7040; J7030